=== PATIENT | female | born 1980 | race Caucasian/White ===

== ENCOUNTER 2019-02-12 06:16 | Inpatient (IN) ==
--- NOTE | 2019-02-06 17:44 | Electrocardiograph Report ---
[place] [facility] Test Date: 2019-02-04 Pat Name: James Medina Department: 107 Room: Gender: F Inspector Cold Working: JUAN : 1980 Requested By: Ole Mclean Order Number: [id number] Reading MD: Neftaly Emanuel Measurements Intervals Stella Rate: 91 P: 24 DE: 151 QRS: -3 QRSD: 94 T: 15 QT: 354 QTc: 403 Interpretive Statements SINUS RHYTHM LOW QRS VOLTAGE IN PRECORDIAL LEADS Electronically Signed On 02-06-2019 17:42:51 EDT by Neftaly Emanuel
[2019-02-12] MEDS ORDERED: CeFAZolin Syr 3,000MG/30 ML 3,000 MG/30 ML SYRINGE IVPB ONE (06:49)
--- NOTE | 2019-02-12 06:54 | Urology History & Physical ---
Date of Encounter: 02/12/19 Time of Encounter: 06:53 Assessment and Plan (1) Renal mass, left Current Visit: Yes Status: Acute proceed with left hand assist laparoscopic nephrectomy. History of Present Illness Chief complaint: left renal mass HPI: Ms. Medina is a 39 year old female here for left hand assist lap nephrectomy Past Med Surg Social Fam HX - Past Medical History Medical history: asthma, hypertension, other Psychiatric history: no psych history - Past Surgical History Surgical History: other - Social History Smoking Status: Unknown if ever smoked Smokeless Tobacco Status: No Alcohol use: none Drug use: none Medications and Allergies Enalapril Maleate [Vasotec] 10 mg PO DAILY 05/05/17 [History] Ethinyl Estradiol/Drospirenone [Ocella 3 mg-0.03 mg Tablet] 1 tab PO DAILY 05/05/17 [History] FLUoxetine HCl [Fluoxetine HCl] 40 mg PO DAILY 05/05/17 [History] Fluticasone Propionate Nasal [Flonase] 2 spr NS DAILY 05/05/17 [History] Levocetirizine Dihydrochloride 5 mg PO DAILY 05/05/17 [History] Naproxen Sodium [Aleve] 220 mg PO DAILY 05/05/17 [History] Omeprazole [PriLOSEC] 20 mg PO DAILY 05/05/17 [History] Allergy/AdvReac Type Severity Reaction Status Date / Time Sulfa (Sulfonamide Allergy Hives Verified 02/04/19 16:24 Antibiotics) sulfamethoxazole Allergy Hives Verified 02/04/19 16:23 [From Bactrim] trimethoprim [From Bactrim] Allergy Hives Verified 02/04/19 16:23 Review of Systems - Constitutional no fever(s) Exam - General physical appearance Present: no distress, no pain Urology Results - Labs All other labs normal.
[2019-02-12] MEDS ORDERED: Ringers Solution, Lactated 1,000 ML IVC SCH (07:00)
--- NOTE | 2019-02-12 07:02 | Anesthesia Evaluation PreOp ---
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) Other Medical History: Renal (kidney stones), GERD, Other (obesity BMI=56.2) Anesthesia History: No Prior Anesthetic Complications, Past Anesthesia, MH (grandmother) Test: Negative (02/04/2019) Alcohol Use: rarely Drug use: none Medications and Allergies Enalapril Maleate [Vasotec] 10 mg PO DAILY 05/05/17 [History] Ethinyl Estradiol/Drospirenone [Ocella 3 mg-0.03 mg Tablet] 1 tab PO DAILY 05/05/17 [History] FLUoxetine HCl [Fluoxetine HCl] 40 mg PO DAILY 05/05/17 [History] Fluticasone Propionate Nasal [Flonase] 2 spr NS DAILY 05/05/17 [History] Levocetirizine Dihydrochloride 5 mg PO DAILY 05/05/17 [History] Naproxen Sodium [Aleve] 220 mg PO DAILY 05/05/17 [History] Omeprazole [PriLOSEC] 20 mg PO DAILY 05/05/17 [History] Allergy/AdvReac Type Severity Reaction Status Date / Time Sulfa (Sulfonamide Allergy Hives Verified 02/04/19 16:24 Antibiotics) sulfamethoxazole Allergy Hives Verified 02/04/19 16:23 [From Bactrim] trimethoprim [From Bactrim] Allergy Hives Verified 02/04/19 16:23 - Meds/Allergy Pre-op Review Medications Reviewed: Yes Allergies Reviewed: Yes Beta Blockers on Current Med List: No Anesthesia Results - Labs Laboratory Tests 02/04/19 02/04/19 02/08/19 16:08 16:08 08:49 WBC 11.3 H Hgb 9.4 L Hct 31.0 L Plt Count 418 H Potassium 4.0 Creatinine 0.95 Serum , Qual Negative - Imaging EKG: report reviewed (02/04/2019 SINUS RHYTHM LOW QRS VOLTAGE IN PRECORDIAL LEADS) Anesthesia Exam O2 Sat Height 1.6 m Weight 143.789 kg O2 Sat by Pulse Oximetry 97 Vital Signs Temp Pulse Resp BP Pulse Ox 98.7 F 87 18 137/87 97 02/12/19 06:59 02/12/19 06:59 02/12/19 06:59 02/12/19 06:59 02/12/19 06:59 Height: 5'3'' Weight: 317 lbs NPO (# of Hours): 8 Pain Scale: 0 Pain Scale Used: Numeric (1 - 10) - HEENT Pupil (Motor): EOMI Mallampati: III Teeth: Normal Oral Opening: Greater than 3 - ACID TANK CLEANER LOC: Oriented ACID TANK CLEANER Motor: Normal RUE, Normal LUE, Normal RLE, Normal LLE, Normal Face ACID TANK CLEANER Sensory: Normal: RUE, LUE, RLE, LLE, Face - Cardiac Rhythm: Regular Murmur: None - Pulmonary Breath Sounds: bilateral Clear Respiratory Effort: Symmetrical Anesthesia Assess/Plan ASA Score: 4 Level of consciousness: Cooperative, Oriented, Tranquil Anesthetic Plan: General Monitoring Plan: Standard Monitors, A-Line Recovery Plan: PACU
[2019-02-12] MEDS ORDERED: Heparin 1,000 UNITS/500 mL 500 ML ONE (07:10)
[2019-02-12] MEDS ORDERED: Albuterol 2.5 MG/3 ML NEBULIZER IH ONE (07:10)
[2019-02-12] MEDS ORDERED: Bupivacaine/EPI 1:200k 0.25%PF 10 ML VIAL INFILT ONE (07:11)
[2019-02-12] MEDS ORDERED: *HR* Rocuronium Bromide 50 MG/5 ML VIAL ONE (07:17)
[2019-02-12] MEDS ORDERED: *HR* FentaNYL (PF) 100 MCG/2 ML VIAL ONE (07:17)
[2019-02-12] MEDS ORDERED: Ondansetron 4 MG/2 ML VIAL ONE (07:17)
[2019-02-12] MEDS ORDERED: Lidocaine -MPF 2% 2 ML VIAL ONE (07:17)
[2019-02-12] MEDS ORDERED: Dexamethasone 4 MG/ML VIAL ONE (07:17)
[2019-02-12] MEDS ORDERED: *HR* Midazolam HCl 2 MG/2 ML VIAL ONE (07:18)
[2019-02-12] MEDS ORDERED: Lidocaine HCL 4 ML Topical Solution (Laryng-O-Jet Kit Sterile Pak) TP ONE (07:18)
[2019-02-12] MEDS ORDERED: *HR* Propofol 200 MG/20 ML VIAL IVP ONE ×2 (07:18→09:41)
[2019-02-12] MEDS ORDERED: Propofol 500 MG/50 ML INFUS..BTL ONE ×5 (07:20→09:17)
[2019-02-12] MEDS ORDERED: Scopolamine Patch 1.5 MG PATCH.TD72 TD ONE (07:34)
[2019-02-12] MEDS ORDERED: Ondansetron 4 MG/2 ML VIAL IVP ONE (07:36)
[2019-02-12] MEDS ORDERED: *HR* HYDROmorphone (PF) 1 MG/ML SYRINGE IVP PRN (07:36)
[2019-02-12] MEDS ORDERED: *HR* OxyCODONE Immed Rel 5 MG TABLET PO PRN (07:36)
[2019-02-12] MEDS ORDERED: *HR* HYDROMORPHONE 2 MG/ML VIAL ONE (08:29)
[2019-02-12] MEDS ORDERED: *HR* PHENYLEPHRINE 1,000 MCG/10 ML SYRINGE IVP ONE (08:33)
[2019-02-12] MEDS ORDERED: *HR* Remifentanil 2 MG VIAL IVP ONE (08:38)
[2019-02-12] MEDS ORDERED: Neostigmine Methylsulfate 3 MG/3 ML SYRINGE ONE (10:00)
--- NOTE | 2019-02-12 10:12 | Operative Note ---
Date of procedure: 02/12/19 Pre-op diagnosis: 6 cm enhancing left renal mass Post-op diagnosis: same Procedure: Hand-assisted laparoscopic radical left nephrectomy Anesthesia: GETA Surgeon: Fede Patton Was there an medical administrative assistant present: Yes Pump Servicer Helper: Sima Cherry Estimated blood loss (cc): 20 Specimen: Left kidney Condition: stable Disposition: PACU Procedure in Detail: Patient was brought back to the operating room and positioned supine on the ope rating table. Anesthesia was applied without complication. Platt catheter was placed with return of clear urine. She was moved into a modified left flank position. Her back was cushioned with gel rolls. She was secured to the operating room table using a combination of tape and 2 straps. Timeout was performed confirming the proper patient and procedure. An 8 cm incision was made just lateral to the umbilicus. There was significant adipose tissue encountered but we were able to dissect down to identify the fascia. I incised the fascia using the Bovie. These my finger through the fascial incision to identify no underlying bowel. I made a 7-8 cm incision along the fascia and then bluntly entered the peritoneum. On palpation there was no significant adhesions. I placed the GelPort and provided pneumoperitoneum through the GelPort using a 12 mm trocar. I placed the laparoscope through the trocar to identify that there were no significant adhesions throughout her abdomen. I re moved the trocar placement handed to the GelPort. Two 12 mm ports were placed- the first in the left lower quadrant. The second superior to the umbilicus. They were placed down onto my hand which was protecting the intra-abdominal contents. Once the trochars were place and provided pneumoperitoneum. I obtained a Harmonic scalpel and identified the white line of Toldt. Using the Harmonic and took down the splenic colonic attachments and then continued the dissection down the white line of Toldt to the sigmoid colon. This allowed the colon to reflect medially providing exposure to the retroperitoneum. I was able to identify the kidney. There was significant adipose tissue surrounding the kidney involving the Gerotas fascia. I was eventually able to identify the ureter inferior to the kidney was able to trace this up to the area of the hilum. The pulsatile renal artery was identified and the renal vein was located slightly anterior to the artery. Reviewing the preoperative imaging identify that there was only one renal artery. I freed up the space anterior and posterior to the hilum and used a endovascular stapler to staple ligate both the artery and vein together. I identified the adrenal gland and used an additional 4 endovascular stapler loads to free up the adrenal gland and superior attachments of the kidney. The ureter was ligated using the Harmonic and blunt dissection was used to free up the posterior attachments. At this point the kidney was free. I carefully examined the hilar area and there was no significant bleeding. I had placed a lap earlier in the case and this was removed. I placed a large Endo Catch bag through the inferior trocar site after removing the port. The kidney was placed in the Endo Catch bag and then brought out through the hand port. I was able to remove the kidney without enlarging the incision. The hand port site fascia was closed using a running #1 looped PDS. Ethel's tissue was closed using a 2-0 Vicryl. The port sites were closed using Vicryl and Monocryl. The hand port skin incision was closed using a subcuticular 4-0 Monocryl suture. Dermabond placed on each incision. Patient remained stable throughout the procedure. There were no apparent complications. Minimal bleeding was experienced and no suction was required during the procedure. I estimate the blood loss at 20 mL. All counts were correct at the end of the procedure.
--- NOTE | 2019-02-12 10:59 | Anesthesia Evaluation Post Op ---
Date of Encounter: 02/12/19 Time of Encounter: 10:58 - Vital Signs Vital Signs: Vital Signs/O2 Sat, Most Current Temp Pulse Resp BP Pulse Ox 97.9 F 78 20 131/72 93 02/12/19 10:28 02/12/19 10:48 02/12/19 10:48 02/12/19 10:48 02/12/19 10:48 - Lungs Lungs: Clear Ascult./Percussion - Airway Airway: Non-obstructed - Cardiovascular Regular Rate - Mental Status Mental Status: Asleep with brisk response to light stimulation - Pain Pain Scale: 3 Pain Scale used: Numeric (1 - 10) - Nausea Vomiting Nausea Vomiting: Not Present - Hydration Hydration: Ice chips, Platt catheter - Discharge PostOp Status: Transfer Patient to floor
[2019-02-12] MEDS ORDERED: *HR* FentaNYL (PF) 100 MCG/2 ML VIAL IVP PRN (11:48)
[2019-02-12] MEDS ORDERED: 0.9 % Sodium Chloride 1,000 ML IVC SCH (11:48)
[2019-02-12] MEDS ORDERED: Fluticasone Propionate Nasal 50 MCG/SPRAY BOTTLE NS PRN (11:48)
[2019-02-12] MEDS ORDERED: *HR* Promethazine 25 MG/ML VIAL IVP PRN (11:48)
[2019-02-12] MEDS ORDERED: Naloxone 0.4 MG/ML INJ IVP PRN (11:48)
[2019-02-12] MEDS ORDERED: Ondansetron 4 MG/2 ML VIAL IVP PRN (11:48)
[2019-02-12] MEDS: Acetaminophen IV 1,000 MG/100 ML INFUS..BTL IVPB SCH ×3 (13:27→23:22)
[2019-02-12] MEDS: ceFAZolin 3,000 MG in 0.9 % Sodium Chloride 100 ML IVPB SCH ×2 (16:39→23:48)
[2019-02-12] MEDS ORDERED: Gabapentin 300 MG CAPSULE PO SCH (21:00)
[2019-02-12] MEDS: OCELLA PO SCH (21:14)
[2019-02-13] MEDS: Acetaminophen IV 1,000 MG/100 ML INFUS..BTL IVPB SCH (05:40)
[2019-02-13 06:03] LABS: Basophils % 0.1 %; Eosinophils % 0.1 %; Hematocrit 30.4 % (35.3-44.9); Immature Granulocytes % 0.3 % (0-4); Lymphocytes # 1.3 K/mcL (0.6-4.6); Lymphocytes % 9.3 %; Mean Corpuscular HGB Conc 29.6 g/dL (31.6-35.5); Mean Corpuscular Hemoglobin 21.4 pg (28.0-33.3); Mean Corpuscular Volume 72.4 fL (83.0-100.0); Mean Platelet Volume 9.2 fL (9.4-12.4); Monocytes # 0.6 K/mcL (0.0-1.3); Monocytes % 4.4 %; Neutrophils # 12.3 K/mcL (1.6-8.9); Platelet Count 381 K/mcL (140-400); Red Cell Distribution Width 17.4 % (11.5-14.5); Segmented Neutrophils % 85.8 %; White Blood Count 14.4 K/mcL (4.3-11.1)
[2019-02-13 06:21] LABS: Calcium 8.9 mg/dL (8.6-10.3)
--- NOTE | 2019-02-13 06:56 | Urology Progress Note ---
Date of Encounter: 02/13/19 Time of Encounter: 06:55 - Assessment and Plan (1) Renal mass, left Current Visit: Yes Status: Resolved Assessment and plan: advancing diet. changing pain meds. ambulate. cath out. discharge this afternoon or tomorrow AM as long as no post op complications arise. Progress Note Subjective: feels better, still having pain Narrative: able to sit up in chair yesterday. no nausea. Objective Initial Vital Signs Temp Pulse Resp BP Pulse Ox 98.7 F 87 18 137/87 97 02/12/19 06:59 02/12/19 06:59 02/12/19 06:59 02/12/19 06:59 02/12/19 06:59 - General physical appearance Present: no distress - Additional Exam urine clear abd soft. minimal bruising around incisions. minimal drainage. - Labs 02/13/19 05:39 02/13/19 05:39 Diabetes panel 02/13/19 Range/Units 05:39 Sodium 137 (136-145) mEq/L Potassium 4.0 (3.5-5.1) mEq/L Chloride 103 (98-107) mEq/L Carbon Dioxide 23 (23-29) mEq/L BUN 17 (6-20) mg/dL Creatinine 1.49 H (0.60-1.20) mg/dL Glucose 112 H (70-105) mg/dL Calcium 8.9 (8.6-10.3) mg/dL Calcium panel 02/13/19 Range/Units 05:39 Calcium 8.9 (8.6-10.3) mg/dL Pituitary panel 02/13/19 Range/Units 05:39 Sodium 137 (136-145) mEq/L Potassium 4.0 (3.5-5.1) mEq/L Chloride 103 (98-107) mEq/L Carbon Dioxide 23 (23-29) mEq/L BUN 17 (6-20) mg/dL Creatinine 1.49 H (0.60-1.20) mg/dL Glucose 112 H (70-105) mg/dL Calcium 8.9 (8.6-10.3) mg/dL Adrenal panel 02/13/19 Range/Units 05:39 Sodium 137 (136-145) mEq/L Potassium 4.0 (3.5-5.1) mEq/L Chloride 103 (98-107) mEq/L Carbon Dioxide 23 (23-29) mEq/L BUN 17 (6-20) mg/dL Creatinine 1.49 H (0.60-1.20) mg/dL Glucose 112 H (70-105) mg/dL Calcium 8.9 (8.6-10.3) mg/dL Consult Discharge Plan - Plan Referrals: Linda Salomon, SHOAIB [Primary Care Provider] -
[2019-02-13] MEDS: OCELLA PO SCH (08:38)
[2019-02-13] MEDS ORDERED: FLUoxetine 20 MG CAPSULE PO SCH (09:00)
[2019-02-13] MEDS ORDERED: Loratadine 10 MG TABLET PO SCH (09:00)
[2019-02-13] MEDS: *HR* HYDROcodone/Acet 10/325 mg TABLET PO PRN ×2 (12:08→15:55)
--- NOTE | 2019-02-13 13:11 | Discharge Summary ---
Orders not resulted at time of discharge: Pending orders 02/12/19 10:04 Surgical Pathology [PTH] Routine Date of Encounter: 02/13/19 Time of Encounter: 13:11 - Discharge Diagnosis (1) Renal mass, left Priority: Primary Status: Resolved - Hospital Course Hospital course: Ms. Medina is a 39 year old female postoperative day #1 status post laparoscopic radical nephrectomy. Doing well. Creatinine at 1.49. Adequate urine output. Catheter removed and she is voiding well. Tolerating diet. Pain controlled. No postoperative complications. Plan for discharge today. - Time Spent with Patient Total time spent providing and/or coordinating discharge services: Labs on day of discharge: Labs from last 24 hours 02/13/19 02/13/19 02/12/19 05:39 05:39 11:41 WBC 14.4 H RBC 4.20 Hgb 9.0 L Hct 30.4 L MCV 72.4 L MCH 21.4 L MCHC 29.6 L RDW 17.4 H Plt Count 381 MPV 9.2 L Immature Gran % 0.3 Seg Neutrophils % 85.8 Lymphocytes % 9.3 Monocytes % 4.4 Eosinophils % 0.1 Basophils % 0.1 Neutrophils # 12.3 H Lymphocytes # 1.3 Monocytes # 0.6 Eosinophils # 0.0 Basophils # 0.0 Sodium 137 Potassium 4.0 Chloride 103 Carbon Dioxide 23 BUN 17 Creatinine 1.49 H Est GFR ( Amer) 47 L Est GFR (Non-Af Amer) 39 L BUN/Creatinine Ratio 11 Glucose 112 H POC Glucose 176 H Calculated Osmolality 286 Calcium 8.9 - Discharge Medications Prescriptions: New HYDROcodone/Acet 10/325 mg [Scott 10-325 mg] 1 each PO Q4HR PRN 5 Days #20 tablet PRN Reason: Mild To Moderate Pain Continued Ethinyl Estradiol/Drospirenone [Ocella 3 mg-0.03 mg Tablet] 1 tab PO DAILY FLUoxetine HCl [Fluoxetine HCl] 40 mg PO DAILY Omeprazole [PriLOSEC] 20 mg PO DAILY Levocetirizine Dihydrochloride 5 mg PO DAILY Fluticasone Propionate Nasal [Flonase] 2 spr NS DAILY PRN PRN Reason: Allergy Symptoms Gabapentin [Neurontin] 300 mg PO HS Lisinopril/Hydrochlorothiazide [Lisinopril-Hctz 20-12.5 mg Tab] 1 tab PO DAILY Discontinued Naproxen Sodium [Aleve] 220 mg PO DAILY PRN PRN Reason: Mild To Moderate Pain Home Medications: Ethinyl Estradiol/Drospirenone [Ocella 3 mg-0.03 mg Tablet] 1 tab PO DAILY 05/05/17 [History] FLUoxetine HCl [Fluoxetine HCl] 40 mg PO DAILY 05/05/17 [History] Fluticasone Propionate Nasal [Flonase] 2 spr NS DAILY PRN 05/05/17 [History] Levocetirizine Dihydrochloride 5 mg PO DAILY 05/05/17 [History] Omeprazole [PriLOSEC] 20 mg PO DAILY 05/05/17 [History] Gabapentin [Neurontin] 300 mg PO HS 02/12/19 [History] Lisinopril/Hydrochlorothiazide [Lisinopril-Hctz 20-12.5 mg Tab] 1 tab PO DAILY 02/12/19 [History] HYDROcodone/Acet 10/325 mg [Scott 10-325 mg] 1 each PO Q4HR PRN 5 Days #20 tablet 02/13/19 [Rx] Allergies/Adverse Reactions: Allergy/AdvReac Type Severity Reaction Status Date / Time Sulfa (Sulfonamide Allergy Hives Verified 02/12/19 07:28 Antibiotics) sulfamethoxazole Allergy Hives Verified 02/12/19 07:28 [From Bactrim] trimethoprim [From Bactrim] Allergy Hives Verified 02/12/19 07:28 Date of admission: 02/12/19 11:28 Primary care physician: Linda Salomon CNP Discharging clinician: Fede Patton Anticipated date of discharge: 02/13/19 Exam Initial Vital Signs Temp Pulse Resp BP Pulse Ox 98.7 F 87 18 137/87 97 02/12/19 06:59 02/12/19 06:59 02/12/19 06:59 02/12/19 06:59 02/12/19 06:59 - General physical appearance Present: well developed, no distress - Patient Status Disposition: Home, Self-Care Condition: Good Functional capacity at discharge: independent ambulation Overall status at discharge: patient is progressing back to baseline - Discharge Instructions Follow Up With: Linda Salomon CNP [Primary Care Provider] - Fede Patton MD [Partnered Physician] - (My office will call to arrange follow-up appointment) Additional Instructions: Okay to shower No baths or swimming No heavy lifting or heavy activity for 4 weeks Okay to ambulate for exercise and walk upstairs Okay to keep incisions open to air Minimal bruising and small drainage from incisions are okay. Call if excessive Call if signs of wound infection including pus Call if fever over 101 degrees Call if excessive nausea or vomiting Use stool softeners to prevent constipation Stay hydrated Avoid NSAIDs Okay to use Tylenol for pain - Diet and Activity Activity: other Diet: advance to your usual diet
[2019-02-13 15:33] VITALS: BP 136/74
== END 2019-02-13 16:18 | disposition home or self-care (01) | DRG 657 ==
LOC: SAMDAY 06:16 → 3NENU 11:28 → 3ANU 11:39
PROVIDERS: ADMIT Urology; ATTEND Urology